=== PATIENT | female | born 1945 | race African-American/Black ===

== ENCOUNTER 2017-09-02 09:52 | Emergency (ER) | payer MEDICARE, BC | END 2017-09-02 10:27 | disposition home or self-care (01) | LOC: ERS 09:52 | DX: J11.1 Influenza due to unidentified influenza virus with other respiratory manifestations (principal); I11.0 Hypertensive heart disease with heart failure; I50.9 Heart failure, unspecified; E03.9 Hypothyroidism, unspecified; F17.210 Nicotine dependence, cigarettes, uncomplicated; Z85.038 Personal history of other malignant neoplasm of large intestine; Z86.73 Personal history of transient ischemic attack (TIA), and cerebral infarction without residual deficits | CPT/HCPCS: 99283 ==

== ENCOUNTER 2018-05-10 14:16 | Outpatient (CLI) | payer MEDICARE, BC ==
--- NOTE | 2018-05-10 15:01 | RAD ---
CHEST TWO VIEWS: HISTORY: Cough. COMPARISON: 03/08/2016 FINDINGS: Atherosclerosis of the aorta. Normal cardiac silhouette. The pulmonary vessels and hilum are normal. The costophrenic angles are clear. No consolidation or mass . No pneumothorax or osseous abnormalities. Calcified granulomatous lesions are noted. IMPRESSION: 1. No acute cardiopulmonary process. 2. Atherosclerosis. POS: [facility]
== END 2018-05-10 14:17 | disposition home or self-care (01) ==
LOC: RAD-FRANK 14:16
PROVIDERS: ATTEND Nurse Practitioner Family
DX: R05 Cough (principal); I50.9 Heart failure, unspecified; I70.90 Unspecified atherosclerosis; Z72.0 Tobacco use
CPT/HCPCS: 71046

== ENCOUNTER 2018-10-20 10:03 | Outpatient (CLI) | payer MEDICARE, BC ==
--- NOTE | 2018-10-20 11:27 | BD ---
DEXA BONE DENSITOMETRY: (Dual energy X-ray Absorptiometry) 10/20/2018 HISTORY: A 73-year-old black female for age-related postmenopausal osteoporosis screening examination. Height 68 inches. Weight 189 lbs. Age of menopause 31 years. COMPARISON: None available. FINDINGS: The bone mineral density (BMD) is given in grams per square centimeter (g/cm2): LUMBAR SPINE: BMD(g/cm2) T-score Z-score L1: 0.818 -1.6 -0.2 L2: 0.823 -1.9 -0.4 L3: 0.768 -2.9 -1.3 L4: 0.772 -2.6 -1.0 Total: 0.794 -2.3 -0.8 HIP: Femoral neck: 0.622 -2.0 -0.8 Total: 0.803 -1.1 -0.3 FRAX WHO Fracture Risk Assessment Tool: 10 Year Fracture Risk * Major osteoporotic fracture: 9.2% Hip fracture: 3.3% Reported Risk Factors: [place](black), Neck BMD=0.622, BMI=28.7, smoking, and glucocorticoid use. * Fracture probability is calculated for an untreated patient. Fracture probability may be lower if the patient has received treatment. IMPRESSION: 1) The mean bone mineral density of the lumbar spine is osteopenic. Fracture risk is increased. 2) The bone mineral density of the femoral neck is osteopenic. Fracture risk is increased. ISAMAR Sewell POS: [facility]
== END 2018-10-20 10:04 | disposition home or self-care (01) ==
LOC: BICMAMMO 10:03
PROVIDERS: ATTEND Nurse Practitioner Family
DX: Z12.31 Encounter for screening mammogram for malignant neoplasm of breast (principal); Z13.820 Encounter for screening for osteoporosis; Z78.0 Asymptomatic menopausal state; M85.89 Other specified disorders of bone density and structure, multiple sites; R92.1 Mammographic calcification found on diagnostic imaging of breast; Z85.038 Personal history of other malignant neoplasm of large intestine
CPT/HCPCS: 77063; 77067; 77080

== ENCOUNTER 2018-11-08 08:29 | Outpatient (CLI) | payer MEDICARE, BC ==
--- NOTE | 2018-11-08 11:16 | ULT ---
RIGHT UPPER QUADRANT ULTRASOUND: INDICATIONS: Elevated LFTs. COMPARISON: None. TECHNIQUE: Pierre-scale, spectral Doppler, and color Doppler images were obtained in the right upper quadrant. FINDINGS: The proximal aorta is normal appearing. The mid and distal aorta is predominantly obscured by overly ing bowel gas. The visualized aspects of the pancreatic head and proximal body appear within normal limits. The majority of the pancreatic parenchyma is obscured by overlying bowel gas. Transverse and sagittal images of the liver demonstrate no definite focal hepatic lesion. The gallbladder has a normal appearance. The common bile duct measures 5 mm. No sonographic [place] sign is reported. Appropriate hepatopetal flow is seen within the main portal vein. The right kidney measures 11.1 cm in length. The right renal cortical thickness is 1.7 cm. There is no hydronephrosis. There is a fairly sizable cyst involving the inferior pole of the right kidney a nd measures up to 3.1 x 2.8 cm. Previously, this cyst, on a comparison right upper quadrant ultrasou nd, from [facility], on 07/16/2016, measured 2 x 2.1 cm. IMPRESSION: 1. No acute sonographic abnormality within the right upper quadrant of the abdomen. 2. Slight interval enlargement of the simple cyst involving the inferior pole of the right kidney, n ow measuring up to 3.1 cm. POS: [facility]
== END 2018-11-08 08:30 | disposition home or self-care (01) ==
LOC: BICULT 08:29
PROVIDERS: ATTEND Nurse Practitioner Family
DX: R79.89 Other specified abnormal findings of blood chemistry (principal); E78.2 Mixed hyperlipidemia; E03.9 Hypothyroidism, unspecified; F17.210 Nicotine dependence, cigarettes, uncomplicated; D47.3 Essential (hemorrhagic) thrombocythemia; I70.0 Atherosclerosis of aorta; R74.8 Abnormal levels of other serum enzymes; N28.1 Cyst of kidney, acquired; Z85.038 Personal history of other malignant neoplasm of large intestine; Z79.899 Other long term (current) drug therapy
CPT/HCPCS: 76705

== ENCOUNTER 2019-04-18 14:56 | Outpatient (CLI) | payer MEDICARE, BC ==
--- NOTE | 2019-04-18 15:26 | RAD ---
RIGHT FOOT THREE VIEWS: 04/18/19 HISTORY: Right foot pain. FINDINGS/IMPRESSION: A posterior calcaneal spur is present. No fracture, dislocation, or bony destruction is identified. POS: [facility]
== END 2019-04-18 14:57 | disposition home or self-care (01) ==
LOC: BICRAD 14:56
PROVIDERS: ATTEND Nurse Practitioner Family
DX: M79.671 Pain in right foot (principal); M77.31 Calcaneal spur, right foot

== ENCOUNTER 2020-05-22 12:09 | Outpatient (CLI) | payer MEDICARE, BC ==
--- NOTE | 2020-05-22 13:44 | BD ---
Exam: DEXA Bone Density 05/22/20 HISTORY: Postmenopausal screening for osteoporosis. Lumbar Spine: BMD (g/cm2) T-SCORE Z-SCORE L1 0.785 -1.9 -0.4 L2 0.811 -2.0 -0.4 L3 0.817 -2.4 -0.8 L4 0.821 -2.2 -0.5 L1-L4 0.808 -2.2 -0.6 Femoral Neck: 0.672 -1.6 -0.4 Total Femur: 0.833 -0.9 0.0 There has been interval improvement of 1.7% in the BMD of the lumbar spine and an improvement of 3.7% in the BMD of the proximal femur since 10/20/18. The ten year fracture risk for a major osteoporotic fracture is 8.1% and for a hip fracture 2.6%. Impression: Osteopenia. POS: [facility]
--- NOTE | 2020-05-22 15:07 | MMO ---
Bilateral MAMMO Bilat Screen [facility]. CLINICAL HISTORY: Patient is 75 years old and is seen for screening. The patient has no family history of breast cancer. VIEWS: The views performed were: bilateral craniocaudal with tomosynthesis and bilateral mediolateral oblique with tomosynthesis. FILMS COMPARED: The present examination has been compared to a prior imaging study performed at [facility]– [place] on [place]/20/2018. This study has been interpreted with the assistance of computer-aided detection. MAMMOGRAM FINDINGS: There are scattered fibroglandular densities. There are no suspicious masses, suspicious calcifications, or new areas of architectural distortion. IMPRESSION: THERE IS NO MAMMOGRAPHIC EVIDENCE OF MALIGNANCY. A ROUTINE FOLLOW-UP MAMMOGRAM IN 1 YEAR IS RECOMMENDED. THE RESULTS OF THIS EXAM WERE SENT TO THE PATIENT. ACR BI-RADS Category 1 - Negative MAMMOGRAPHY NOTE: 1. A negative mammogram report should not delay a biopsy if a dominant of clinically suspicious mass is present. 2. Approximately 10% to 15% of breast cancers are not detected by mammography. 3. Adenosis and dense breasts may obscure an underlying neoplasm. Reported by: TOMAS CHAVIS MD Electonically Signed: [id number]
== END 2020-05-22 12:10 | disposition home or self-care (01) ==
LOC: BICMAMMO 12:09
PROVIDERS: ATTEND Nurse Practitioner Family
DX: Z12.31 Encounter for screening mammogram for malignant neoplasm of breast (principal); Z13.820 Encounter for screening for osteoporosis; M85.89 Other specified disorders of bone density and structure, multiple sites
CPT/HCPCS: 77063; 77067; 77080

== ENCOUNTER 2021-05-16 10:21 | Emergency (ER) | payer MEDICARE, BC ==
[2021-05-16 11:12] LABS: #Basophils 0.1 thou/uL (0.0-0.2); #Lymphocytes 2.5 thou/uL (1.20-3.40); #Monocytes 0.8 thou/uL (0.11-0.59); #Neutrophils 8.7 thou/uL (1.40-6.50); %Basophils 0.9 % (0.0-1.0); %Eosinophils 0.3 % (0.0-10.0); %Lymphocytes 20.6 % (21.0-51.0); %Monocytes 6.2 % (0.0-10.0); %Neutrophils 71.9 % (42.0-75.0); Hemoglobin 6.6 g/dL (12.0-16.0); Mean Corpuscular HGB CONC 32.1 g/dL (32.0-36.0); Mean Corpuscular Hemoglobin 27.8 pg (27.0-31.0); Mean Corpuscular Volume 86.6 fL (78.0-98.0); Mean Platelet Volume 7.2 fL (7.4-10.4); Platelet Count 360 thou/uL (130-400); RBC Distribution Width 18.6 % (11.5-14.5); Red Blood Cell (RBC) Count 2.36 mill/uL (4.20-5.40); White Blood Cell (WBC) Count 12.2 thou/uL (4.8-10.8)
[2021-05-16] MEDS ORDERED: Pantoprazole 40 MG VIAL ONE (11:34)
[2021-05-16 11:35] LABS: ALT (SGPT) 8 U/L (8-55); AST (SGOT) 13 U/L (5-34); Albumin 3.3 g/dL (3.4-4.8); Alkaline Phosphatase 111 U/L (40-110); Anion Gap 10 mmol/L (10-20); BUN (Urea Nitrogen) 42 mg/dL (9.8-20.1); Bilirubin, Total 0.3 mg/dL (0.2-1.2); Calc. Creatinine Clearance 0 mL/min (70-130); Calcium 8.2 mg/dL (7.8-10.44); Carbon Dioxide 24 mmol/L (23-31); Chloride 113 mmol/L (98-107); Globulin 1.8 g/dL (2.4-3.5); Glucose 118 mg/dL (83-110); Protein, Total 5.1 g/dL (5.8-8.1); Sodium 143 mmol/L (136-145)
[2021-05-16] MEDS ORDERED: Pantoprazole 80 MG, Admixture Fee 1 EACH in Sodium Chloride 0.9% 100 ML IVPB SCH (11:45)
[2021-05-16] MEDS ORDERED: Iopamidol-370 76% 500 ML 1 ML ONE (15:13)
[2021-05-16 20:58] LABS: SARS-CoV-2 NAA Rapid Test Not Detected (NotDetected)
== END 2021-05-16 20:15 | disposition short-term general hospital (02) ==
LOC: ERS 10:21
DX: K92.2 Gastrointestinal hemorrhage, unspecified (principal); D64.9 Anemia, unspecified; I95.9 Hypotension, unspecified; I50.9 Heart failure, unspecified; E03.9 Hypothyroidism, unspecified; I11.0 Hypertensive heart disease with heart failure; F17.210 Nicotine dependence, cigarettes, uncomplicated; Z86.73 Personal history of transient ischemic attack (TIA), and cerebral infarction without residual deficits
CPT/HCPCS: 36415; 36430; 74177; 80053; 83690; 85025; 86850; 86900; 86901; C9113; J3490; P9016; U0002

== ENCOUNTER 2021-06-09 07:57 | Outpatient (CLI) | payer MEDICARE, BC | END 2021-06-09 07:58 | disposition home or self-care (01) | LOC: ULT 07:57 | PROVIDERS: ATTEND Internal Medicine Gastroenterology | DX: K92.0 Hematemesis (principal); R10.13 Epigastric pain; D64.9 Anemia, unspecified; N28.1 Cyst of kidney, acquired | CPT/HCPCS: 76705 ==

== ENCOUNTER 2023-10-18 13:27 | Outpatient (CLI) | payer MEDICARE, BC | END 2023-10-18 13:28 | disposition home or self-care (01) | LOC: BICRAD 13:27 | PROVIDERS: ATTEND Nurse Practitioner Family | DX: M25.562 Pain in left knee (principal); M17.12 Unilateral primary osteoarthritis, left knee ==